=== PATIENT | male | born 1990 | race Caucasian/White ===

== ENCOUNTER 2022-02-22 10:11 | Outpatient (REF) | payer OTHER, SELFPAY ==
[2022-02-22 10:39] LABS: MANUAL DIFF FLAG NO
[2022-02-22 11:28] LABS: Basophils Percent Auto 0.3 % (0-2); Eosinophils Absolute Auto 0.1 X10*3/uL (0.0-0.4); Eosinophils Percent Auto 0.7 % (0-4); Hematocrit 43.1 % (42.0-52.0); Hemoglobin 15.2 g/dl (14.0-18.0); Imm Gran Abs Auto 0.03 X10*3/uL (0.00-0.03); Imm Gran Pct Auto 0.3 % (0.0-0.4); Lymphocytes Absolute Auto 2.3 X10*3/uL (1.2-4.9); Lymphocytes Percent Auto 25.9 % (20-40); Mean Corpuscular HGB Conc 35.3 g/dl (31.0-36.0); Mean Corpuscular Hemoglobin 32.5 pg (27.0-33.0); Mean Corpuscular Volume 92.1 fL (80.0-98.0); Mean Platelet Volume 9.6 fL (9.4-12.4); Monocytes Absolute Auto 0.7 X10*3/uL (0.1-1.2); Monocytes Percent Auto 8.2 % (2-11); Neutrophils Absolute Auto 5.6 x10*3/uL (2.0-8.3); Neutrophils Percent Auto 64.6 % (45-73); Platelet Count 287 X10*3/uL (160-400); Red Blood Count 4.68 X10*6/uL (4.60-5.80); Red Cell Distribution Width 12.2 % (11.0-16.0); White Blood Count 8.7 X10*3/uL (4.8-10.8)
[2022-02-22 12:19] LABS: Alanine Aminotransferase 39 U/L (0-40); Albumin Level 4.6 g/dL (3.5-5.0); Alkaline Phosphatase 70 U/L (39-117); Anion Gap 12 (12-20); Aspartate Amino Transferase 25 U/L (5-37); Bilirubin Total 0.3 mg/dL (0.0-1.0); Blood Urea Nitrogen 13 mg/dL (9-16); Calcium 9.2 mg/dL (8.4-10.2); Carbon Dioxide 27 mmol/L (22-29); Chloride 105 mmol/L (96-108); Cholesterol 195 mg/dL; Estimated Glomerular Filt Rate > 60; Glucose Fasting 87 mg/dL (60-99); HDL Cholesterol 40 mg/dL; LDL Cholesterol Calculated 95 mg/dl; Potassium 4.7 mmol/L (3.3-5.1); Sodium 139 mmol/L (135-145); Total Protein 7.2 g/dL (6.5-8.0); Triglycerides 301 mg/dL
[2022-02-22 12:29] LABS: Thyroid Stimulating Hormone 0.59 uIU/mL (0.32-4.0)
== END 2022-02-22 10:12 | disposition home or self-care (01) ==
LOC: HO.LAB 10:11
PROVIDERS: Absent Provider Podiatrist; PCP Internal Medicine; Visit Provider Internal Medicine
DX: Z00.00 Encounter for general adult medical examination without abnormal findings (principal); Z13.0 Encounter for screening for diseases of the blood and blood-forming organs and certain disorders involving the immune mechanism
CPT/HCPCS: 36415; 80053; 80061; 84443; 85025

== ENCOUNTER 2022-04-09 07:16 | Outpatient (REF) | payer OTHER, SELFPAY | END 2022-04-09 07:17 | disposition home or self-care (01) | LOC: HO.HOSX 07:16 | PROVIDERS: Visit Provider Physician Assistant | DX: Z13.89 Encounter for screening for other disorder (principal) ==

== ENCOUNTER 2022-07-06 16:44 | Outpatient (REF) | payer OTHER, SELFPAY ==
[2022-07-07 13:23] LABS: Influenza A PCR NEGATIVE (Negative); Influenza B PCR NEGATIVE (Negative); Resp Syncy Virus RNA Qual PCR NEGATIVE (Negative); SARS COV2 PCR INHOUSE NEGATIVE (Negative)
== END 2022-07-06 16:45 | disposition home or self-care (01) ==
LOC: HO.LAB 16:44
PROVIDERS: Visit Provider Nurse Practitioner Family
DX: Z20.822 Contact with and (suspected) exposure to COVID-19 (principal)
CPT/HCPCS: 0241U

== ENCOUNTER 2022-07-28 08:07 | Outpatient (REF) | payer OTHER, SELFPAY ==
[2022-07-28 09:13] LABS: Alanine Aminotransferase 77 U/L (0-40); Albumin Level 4.9 g/dL (3.5-5.0); Alkaline Phosphatase 81 U/L (39-117); Aspartate Amino Transferase 53 U/L (5-37); Bilirubin Direct 0.2 mg/dL (0.0-0.5); Bilirubin Total 0.5 mg/dL (0.0-1.0); Total Protein 7.3 g/dL (6.5-8.0)
== END 2022-07-28 08:08 | disposition home or self-care (01) ==
LOC: HO.LAB 08:07
PROVIDERS: PCP Internal Medicine; Visit Provider Podiatrist
DX: B35.1 Tinea unguium (principal)
CPT/HCPCS: 36415; 80076

== ENCOUNTER 2022-10-12 08:24 | Outpatient (REF) | payer OTHER, SELFPAY ==
[2022-10-12 09:43] LABS: Alanine Aminotransferase 26 U/L (0-40); Albumin Level 4.6 g/dL (3.5-5.0); Alkaline Phosphatase 59 U/L (39-117); Aspartate Amino Transferase 22 U/L (5-37); Bilirubin Direct < 0.2 mg/dL (0.0-0.5); Bilirubin Total 0.5 mg/dL (0.0-1.0); Total Protein 6.9 g/dL (6.5-8.0)
== END 2022-10-12 08:25 | disposition home or self-care (01) ==
LOC: HO.LAB 08:24
PROVIDERS: PCP Internal Medicine; Visit Provider Podiatrist
DX: B35.1 Tinea unguium (principal)
CPT/HCPCS: 36415; 80076

== ENCOUNTER 2022-11-07 00:25 | Emergency (ER) | payer OTHER, SELFPAY ==
--- NOTE | ~2022-11-07 | XR_ITS ---
EXAMINATION: XR ELBOW, RIGHT CLINICAL INFORMATION: Pain status post fall COMPARISON: None available. TECHNIQUE: AP, lateral, and oblique views of the right elbow. FINDINGS: The bones and soft tissues are normal. No fracture or joint effusion. Alignment is anatomic. Joint spaces are maintained. XR/XR elbow RT min 3V IMPRESSION: Normal right elbow.
[2022-11-07 00:32] VITALS: BP 114/62; PULSE 60; O2SAT 100
[2022-11-07 00:40] VITALS: BP 118/73; PULSE 68; RESP 16; TEMP 36.6; O2SAT 98; BMI 26.6
--- NOTE | 2022-11-07 00:43 | ECG_ITS ---
Test Reason : SYNCOPE Blood Pressure : / mmHG Vent. Rate : 070 BPM Atrial Rate : 070 BPM P-R Int : 168 ms QRS Dur : 094 ms QT Int : 386 ms P-R-T Axes : 043 -15 033 degrees QTc Int : 416 ms Normal sinus rhythm Normal ECG No previous ECGs available Referred By: Rissa Harmon Electronically Signed By:AISLINN COOPER
--- NOTE | 2022-11-07 01:34 | ED_ITS ---
HPI - Syncope General Chief Complaint: Syncope Stated Complaint: Syncopal Episode Time Seen by Provider: 11/07/22 00:43 Source: patient Mode of arrival: EMS History of Present Illness HPI narrative: 32-year-old male with a history of vasovagal syncope as well as anxiety presents via EMS for being involved in an intense argument with his , she left the room and patient states that he for felt lightheaded and attempted to sit down prior to passing out in the states that she came back in and saw him strike his shoulder against the wall and then fall onto the floor striking his head on the cat bowls. Related Data Previous Rx's Medication Instructions Recorded terbinafine HCl 250 mg tablet 250 mg PO DAILY #30 tabs 10/15/22 Allergies Allergy/AdvReac Type Severity Reaction Status Date / Time No Known Allergies Allergy Verified 08/05/22 10:16 [No Known Allergies*] Review of Systems Review of Systems: Pertinent positives and negatives as stated in HPI PMFSH Past Medical History Source: nursing notes reviewed Surgical History No pertinent past surgical history Family History Family History Father No problems noted. Mother No problems noted. Social History Social History Housing: Apartment Alcohol intake: current Alcohol intake frequency: a few times a month Patient Tobacco Use Status: Current someday Tobacco user Tobacco use type: Cigarette e-Cigarette/Vaping Use: Never Used Second Hand Smoke Exposure: No Advance Directives: No Advance Directives Information Provided: No service: No Current occupational status: employed Cognitive needs: No Hearing needs: No Vision needs: No Physical Exam Vital Signs: Vital Signs: Last Vital Signs Temp 97.8 F 11/07/22 00:40 Pulse 68 11/07/22 00:40 Resp 16 11/07/22 00:40 BP 145/78 H 11/07/22 02:35 Pulse Ox 98 11/07/22 00:40 O2 Del Method Room Air 11/07/22 00:40 BMI result Body Mass Index 26.6 VITAL SIGNS: Reviewed. GENERAL: Well developed, well nourished, in no acute distress. HEAD: Normocephalic/atraumatic EYES: PERRLA, EOMI EARS: Ext canals without abnormality NOSE: Nares patent bilateral OROPHARYNX: no oral lesions noted, posterior pharynx clear NECK: Supple, no adenopathy LUNGS: Normal breath sounds. No adventitious sounds or accessory muscle use. SpO2<98> CARDIOVASCULAR: Regular rate and rhythm without noted murmurs ABDOMEN: Soft, non-tender, non-distended with bowel sounds. MUSCULOSKELETAL: No tenderness, deformities, or effusions noted on gross inspection. EXTREMITIES: No cyanosis, clubbing or edema. SKIN: Inspection of the skin reveals no rashes, NEUROLOGIC: Alert and oriented x 3. Strength and sensation to light touch were grossly intact x 4. Medications Administered Discontinued Medications Generic Name Dose Route Start Last Admin Trade Name Freq PRN Reason Stop Dose Admin Acetaminophen 975 mg 11/07/22 02:22 11/07/22 02:43 Acetaminophen 325 Mg Tablet PO 11/07/22 02: 975 mg ONCE ONE Administration Ibuprofen 400 mg 11/07/22 02:22 11/07/22 02:43 Ibuprofen 400 Mg Tablet PO 11/07/22 02:23 400 mg ONCE ONE Administration Medical Decision Making Medical Decision Making MDM Narrative: 32-year-old male with history and clinical presentation most consistent with vasovagal syncope related to high emotions during an argument. Will rule out infection, anemia, electrolyte abnormalities or arrhythmias. Reviewed all investigations my interpretation is that this is a vasovagal syncopal episode secondary to high stress emotions. Differential Diagnosis Please see the discussion above Lab Data Please see the discussion above 11/07/22 01:38 11/07/22 01:38 Labs: Lab Results 11/07/22 11/07/22 Range/Units 01:38 01:38 WBC 8.0 (4.8-10.8) X10*3/uL RBC 4.73 (4.60-5.80) X10*6/uL Hgb 15.2 (14.0-18.0) g/dl Hct 42.4 (42.0-52.0) % MCV 89.6 (80.0-98.0) fL MCH 32.1 (27.0-33.0) pg MCHC 35.8 (31.0-36.0) g/dl RDW 12.2 (11.0-16.0) % Plt Count 268 (160-400) X10*3/uL MPV 9.0 L (9.4-12.4) fL Immature Gran % (Auto) 0.4 (0.0-0.4) % Neut % (Auto) 67.0 (45-73) % Lymph % (Auto) 21.9 (20-40) % [place] % (Auto) 9.6 (2-11) % Eos % (Auto) 0.6 (0-4) % Baso % (Auto) 0.5 (0-2) % Lymph # (Auto) 1.7 (1.2-4.9) X10*3/uL [place] # (Auto) 0.8 (0.1-1.2) X10*3/uL Eos # (Auto) 0.1 (0.0-0.4) X10*3/uL Baso # (Auto) 0.0 (0.0-0.2) X10*3/uL Abs Immat Gran (auto) 0.03 (0.00-0.03) X10*3/uL Absolute Neuts (auto) 5.3 (2.0-8.3) x10*3/uL Absolute Nucleated RBC 0.000 (0.0-0.012) X10*3/uL Nucleated RBC % (auto) 0.0 (0.0-0.2) /100WBC Sodium 139 (135-145) mmol/L Potassium 4.2 (3.3-5.1) mmol/L Chloride 104 (96-108) mmol/L Carbon Dioxide 23 (22-29) mmol/L Anion Gap 16 (12-20) BUN 20 H (9-16) mg/dL Creatinine 0.93 (0.5-1.4) mg/dL Estim Creat Clear Calc 108.5 Estimated GFR > 60 Random Glucose 88 (60-115) mg/dL Calcium 9.8 D (8.4-10.2) mg/dL Total Bilirubin 0.6 (0.0-1.0) mg/dL AST 25 (5-37) U/L ALT 28 (0-40) U/L Alkaline Phosphatase 64 (39-117) U/L Total Protein 7.3 (6.5-8.0) g/dL Albumin 4.8 (3.5-5.0) g/dL Ethyl Alcohol < 10 mg/dL Independent Interpretation I performed an independent interpretation of an: EKG Interpretation: Normal sinus rhythm, HR-70, no STEMI, [place]/QRS/QTC is within normal limits. Radiology Impression Radiologist Impression: My interpretation is in agreement with radiology's impression of the imaging study Discharge Plan Discharge Clinical Impression: Syncope, vasovagal, Elbow pain Patient Disposition: Home, Self-Care Instructions: Syncope (ED), Arm Pain (ED) Additional Instructions: 1. Recommend [id number] Tylenol/ibuprofen as needed for elbow pain. 2. Follow-up with primary care provider Tuesday. Return to the ER for any worsening symptoms. Prescriptions: No Action terbinafine HCl 250 mg tablet 250 mg PO DAILY Qty: 30 0RF Referrals: Esteban Henning MD [Primary Care Provider] -
[2022-11-07 01:42] LABS: Basophils Percent Auto 0.5 % (0-2); Eosinophils Absolute Auto 0.1 X10*3/uL (0.0-0.4); Eosinophils Percent Auto 0.6 % (0-4); Hematocrit 42.4 % (42.0-52.0); Hemoglobin 15.2 g/dl (14.0-18.0); Imm Gran Abs Auto 0.03 X10*3/uL (0.00-0.03); Imm Gran Pct Auto 0.4 % (0.0-0.4); Lymphocytes Absolute Auto 1.7 X10*3/uL (1.2-4.9); Lymphocytes Percent Auto 21.9 % (20-40); MANUAL DIFF FLAG NO; Mean Corpuscular HGB Conc 35.8 g/dl (31.0-36.0); Mean Corpuscular Hemoglobin 32.1 pg (27.0-33.0); Mean Corpuscular Volume 89.6 fL (80.0-98.0); Monocytes Absolute Auto 0.8 X10*3/uL (0.1-1.2); Monocytes Percent Auto 9.6 % (2-11); Neutrophils Absolute Auto 5.3 x10*3/uL (2.0-8.3); Platelet Count 268 X10*3/uL (160-400); Red Blood Count 4.73 X10*6/uL (4.60-5.80); Red Cell Distribution Width 12.2 % (11.0-16.0)
[2022-11-07 02:05] LABS: Alanine Aminotransferase 28 U/L (0-40); Albumin Level 4.8 g/dL (3.5-5.0); Alkaline Phosphatase 64 U/L (39-117); Anion Gap 16 (12-20); Aspartate Amino Transferase 25 U/L (5-37); Bilirubin Total 0.6 mg/dL (0.0-1.0); Blood Urea Nitrogen 20 mg/dL (9-16); Calcium 9.8 mg/dL (8.4-10.2); Carbon Dioxide 23 mmol/L (22-29); Chloride 104 mmol/L (96-108); Creatinine Clr Calc Pharmacy 108.5; Estimated Glomerular Filt Rate > 60; Ethanol < 10 mg/dL; Glucose Random 88 mg/dL (60-115); Potassium 4.2 mmol/L (3.3-5.1); Sodium 139 mmol/L (135-145); Total Protein 7.3 g/dL (6.5-8.0)
[2022-11-07 02:33] VITALS: BP 119/68
[2022-11-07 02:35] VITALS: BP 133/72; BP 145/78
[2022-11-07] MEDS: Ibuprofen 400 MG TABLET PO (02:43)
[2022-11-07] MEDS: Acetaminophen 325 MG TABLET 975 MG PO (02:43)
== END 2022-11-07 03:51 | disposition home or self-care (01) ==
PROVIDERS: Emergency Provider Student in an Organized Health Care Education/Training Program; PCP Internal Medicine
DX: R55 Syncope and collapse (principal); M25.522 Pain in left elbow; M25.521 Pain in right elbow; F17.210 Nicotine dependence, cigarettes, uncomplicated; Z71.6 Tobacco abuse counseling; Z79.899 Other long term (current) drug therapy
CPT/HCPCS: 36415; 73080; 80053; 82077; 85025; 93005; 99285

== ENCOUNTER 2023-11-28 09:06 | Outpatient (AMB) | payer OTHER, SELFPAY ==
--- NOTE | 2023-11-28 09:16 | MHC.PC.OV ---
Vital Signs 11/28/23 09:17 Height 5 ft 7 in Weight 183 lb BMI 28.7 BP 114/78 Blood Pressure Location Lt brachial Position Sitting Pulse 60 Pulse Source Pulse Oximeter Pulse Oximetry (%) 98 Oxygen Delivery Method Room Air Intake Visit Reasons: pe Licensed [employer] Room Operator Required: No Admitted Attorneys: Not Required per policy Accompanied by: Self / Same As Patient Allergies No Known Allergies [No Known Allergies*] Allergy (Verified 11/28/23 09:17) Medication List - Last Reconciled 11/28/23 by Esteban Henning MD lorazepam 1 mg PO BID PRN Tobacco use date assessed: 11/28/23 Dental Screening Dental Screen Date: 11/28/23 Did you have a dental visit in the last 12 months?: Yes Did you have a dental problem in the last 6 months where you did not have access to dental care?: No Was dental information given to patient?: Patient has dentist HPI pe HPI Details healthy; no reg meds PFSH Surgical History No pertinent past surgical history Family History Father No problems noted. Mother No problems noted. Social History Housing: Apartment Alcohol intake: current Alcohol intake frequency: a few times a month Patient Tobacco Use Status: Current someday Tobacco user Tobacco use type: Cigarette e-Cigarette/Vaping Use: Never Used Second Hand Smoke Exposure: No service: No Current occupational status: employed Cognitive needs: No Hearing needs: No Vision needs: No Questionnaire PHQ-9 Over the last 2 weeks, how often have you been bothered by any of the following problems? 1. Little interest or pleasure in doing things: not at all 2. Feeling down, depressed, or hopeless: not at all 3. Trouble falling or staying asleep, or sleeping too much: not at all 4. Feeling tired or having little energy: several days 5. Poor appetite or overeating: not at all 6. Feeling bad about yourself - or that you are a failure or have let yourself or your family down: not at all 7. Trouble concentrating on things, such as reading the newspaper or watching television: not at all 8. Moving or speaking so slowly that other people could have noticed. Or the opposite - being so fidgety or restless that you have been moving around a lot more than usual: not at all 9. Thoughts that you would be better off or of hurting yourself in some way: not at all Total score: 1 Depression Screening Interpretation: Negative Depression Screening Done: Yes 26367 - PHQ-9 Billing: Yes Source: Developed by Drs. Kojo Zhao, Marycruz Ling, Scotty Noland and colleagues, with an educational elvis from [employer]. Thrive Questionnaire Date Thrive assessed: 11/28/23 I am a: Patient What is your living situation today?: I have a steady place to live Within the past 12 months, did the food you bought not last and you didn't have the money to get more?: Never true Within the past 12 months, did you worry whether your food would run out before you got money to buy more?: Never true Do you have trouble paying for medicines?: No Do you have trouble getting transportation to medical appointments?: No Do you have trouble paying your heating and electricity bill?: No Do you have trouble taking care of your child, family member or friend?: No Do you have trouble with day-to-day activities such as bathing, preparing meals, shopping, managing finances, etc.?: No Are you currently unemployed and looking for a job?: No Are you interested in more education?: No Please select the resources that you would like help with: None THRIVE Score: 0 AUDIT C Alcohol Use Questionnaire (AUDIT-C) 1. How often do you have a drink containing alcohol?: 2-4 times a month 2. How many drinks containing alcohol do you have on a typical day when you are drinking?: 1 or 2 3. How often do you have six or more drinks on one occasion?: Never Total Score: 2 Score Reviewed/Action Taken: Yes CECILIO-7 AMB Questionnaire CECILIO-7 Date CECILIO - 7 assessed: 11/28/23 Feeling nervous, anxious, or on edge: 0 = Not at all Not being able to stop or control worryin = Not at all Worrying too much about different things: 0 = Not at all Trouble relaxin = Not at all Being so restless that it is hard to sit still: 0 = Not at all Becoming easily annoyed or irritable: 0 = Not at all Feeling afraid as if something awful might happen: 0 = Not at all Total CECILIO-7 score (0-4 normal; 5-9 mild; 10-14 moderate; 15-21 severe): 0 Source: Developed by Drs. Kojo Zhao, Marycruz Ling, Scotty Noland and colleagues, with an educational elvis from [employer]. Review of Systems Const Denies chills, Denies fatigue, Denies headache(s) and Denies weight loss Eyes Denies change in vision, Denies diplopia and Denies eye pain ENT Reports Normal hearing present, Denies vertigo, Denies dizziness, Denies headache(s) and Denies nasal discharge Card Denies chest pain, Denies rapid heart rate and Denies dyspnea on exertion Resp Denies chest congestion, Denies cough, Denies pain with cough and Denies dyspnea on exertion GI Denies abdominal pain, Denies hematochezia and Denies change in bowel habits Musc Denies myalgias, Denies arthralgias and Denies joint swelling Skin/Breast Denies lesions and Denies unusual bruising Neuro Reports Normal hearing present, Denies vertigo, Denies dizziness, Denies headache(s) and Denies focal weakness Endo Denies fatigue Physical exam (Primary Care) Vital Signs: Last Vital Signs Pulse 60 11/28/23 09:17 BP 114/78 11/28/23 09:17 Pulse Ox 98 11/28/23 09:17 Oxygen Delivery Method Room Air 11/28/23 09:17 BMI result Body Mass Index 28.7 Tobacco/Smoking Status: Tobacco use Status Tobacco use date assessed 11/28/23 11/28/23 09:18 Patient Tobacco Use Status Current someday Tobacco 11/28/23 09:18 Tobacco use type Cigarette 11/28/23 09:18 e-Cigarette/Vaping Use Never Used 11/28/23 09:18 PHQ-9: PHQ-9 Score PHQ-9: Total score 1 11/28/23 09:18 Depression Screening Interpretation: Negative Thrive Assessment: Date of Thrive Assessment Date Thrive assessed 11/28/23 11/28/23 09:18 Const General: cooperative, healthy appearing, comfortable and no acute distress HENMS Head: Yes normocephalic and Yes atraumatic Eyes General: appearance normal, both eyes and all related structures Neck Neck: Yes full ROM and Yes no lymphadenopathy Resp Effort & Inspection: normal respiratory effort Auscultation: clear to auscultation bilaterally Percussion: percussion normal Cardio Jugular venous distension: no JVD Palpation: normal PMI Rate: regular rate Rhythm: regular rhythm Heart sounds: S1 normal heart sound present and S2 normal heart sound present GI Inspection: Yes normal to inspection Palpation (GI): No hepatosplenomegaly present Auscultation: normal bowel sounds Skin Lesions: no lesions Rashes: no rashes Neuro Cranial nerves: Yes Normal hearing present Extrem General: Yes no clubbing, cyanosis or edema Assessment and Plan Assessment & Plan (1) Physical exam: Code(s): Z00.00 - Encounter for general adult medical examination without abnormal findings Plan: stable; do labs Orders: Orders Thyroid Stimulating Hormone Today Z13.29 - Encounter for screening for other suspected endocrine disorder Coding Level of Care Code Est Pt Prev Care 18-39y(40726) Diagnoses Physical exam Z00.00
[2023-11-28 09:17] VITALS: BP 114/78; PULSE 60; O2SAT 98; BMI 28.7
== END 2023-11-28 09:38 | disposition home or self-care (01) ==
PROVIDERS: Visit Provider Internal Medicine
DX: Z00.00 Encounter for general adult medical examination without abnormal findings (principal)
CPT/HCPCS: 99395

== ENCOUNTER 2024-12-28 09:06 | Outpatient (AMB) | payer OTHER, SELFPAY ==
[2024-12-28 09:11] VITALS: BP 120/82; PULSE 56; RESP 20; TEMP 36.4; O2SAT 97; BMI 27.9
--- NOTE | 2024-12-28 09:11 | A.OFFPC_ITS ---
Vital Signs 12/28/24 09:11 Height 5 ft 7 in Weight 178 lb 3.2 oz BMI 27.9 BP 120/82 Blood Pressure Location Lt brachial Position Sitting Respiration 20 Pulse 56 Pulse Source Pulse Oximeter Temp 97.5 F Temp Source Oral Pulse Oximetry (%) 97 Oxygen Delivery Method Room Air Intake Visit Reasons: MAMADOU Dr. Henning [place] Hand Required: No Accompanied by: Self / Same As Patient Allergies No Known Allergies [No Known Allergies*] Allergy (Verified 12/28/24 09:24) Medication List - Last Reconciled 12/28/24 by BENNY Palm No Known Home Meds Tobacco use date assessed: 12/28/24 Dental Screening Dental Screen Date: 12/28/24 Did you have a dental visit in the last 12 months?: Yes Did you have a dental problem in the last 6 months where you did not have access to dental care?: No Was dental information given to patient?: Patient has dentist HPI MAMADOU Dr. Henning HPI Details The patient is a 34-year-old male presenting transition of care from Dr. Henning who retired. Here to discuss management of chronic hemorrhoids, along with a complaint of excessive sweating. He has experienced chronic recurrent hemorrhoids and has adopted dietary changes focused on fiber intake through yogurt. He employs wipes for hygiene and uses hemorrhoid cream when symptoms flare, although he finds inconsistencies in product formulations. The issue of hemorrhoids fluctuates with the patient's bowel habits, noting a connection to constipation episodes. Additionally, the patient reports excessive sweating mainly localized to his armpits, noticeably worse at night, leading to discomfort even with minimal coverage. He queries whether this is related to his diet or possibly linked to anxiety, despite having well-managed anxiety without recent medication. The patient describes issues with constipation exacerbated by low water intake and high coffee consumption. Encouraged to patient to increase fiber in his di et and adequate hydration. Patient denies chest pain, SOB, heart palpitation and dizziness. No abdominal pain/no change in bowel habits recurrent- intermittent constipation. No urinary symptoms. [facility] Medical History (Updated 12/31/24 @ 23:19 by BENNY Palm) Constipation Hemorrhoids Surgical History No pertinent past surgical history Family History Father No problems noted. Mother No problems noted. 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 1. Little interest or pleasure in doing things: not at all 2. Feeling down, depressed, or hopeless: not at all 3. Trouble falling or staying asleep, or sleeping too much: several days 4. Feeling tired or having little energy: several days 5. Poor appetite or overeating: not at all 6. Feeling bad about yourself - or that you are a failure or have let yourself or your family down: not at all 7. Trouble concentrating on things, such as reading the newspaper or watching television: not at all 8. Moving or speaking so slowly that other people could have noticed. Or the opposite - being so fidgety or restless that you have been moving around a lot more than usual: not at all 9. Thoughts that you would be better off or of hurting yourself in some way: not at all Total score: 2 Depression Screening Interpretation: Negative Depression Screening Done: Yes 40312 - PHQ-9 Billing: Yes Source: Developed by Drs. Kojo Zhao, Marycruz Ling, Scotty Noland and colleagues, with an educational elvis from [employer]. Thrive Questionnaire Date Thrive assessed: 12/28/24 I am a: Patient What is your living situation today?: I have a steady place to live Within the past 12 months, did the food you bought not last and you didn't have the money to get more?: Never true Within the past 12 months, did you worry whether your food would run out before you got money to buy more?: Never true Do you have trouble paying for medicines?: No Do you have trouble getting transportation to medical appointments?: No Do you have trouble paying your heating and electricity bill?: No Do you have trouble taking care of your child, family member or friend?: No Do you have trouble with day-to-day activities such as bathing, preparing meals, shopping, managing finances, etc.?: No Are you currently unemployed and looking for a job?: No Are you interested in more education?: No Please select the resources that you would like help with: None Currently or been in a relationship where the following occur: No concerns reported THRIVE Score: 0 AUDIT C Alcohol Use Questionnaire (AUDIT-C) 1. How often do you have a drink containing alcohol?: 2-3 times a week 2. How many drinks containing alcohol do you have on a typical day when you are drinking?: 1 or 2 3. How often do you have six or more drinks on one occasion?: Never Total Score: 3 Score Reviewed/Action Taken: No CECILIO-7 AMB Questionnaire CECILIO-7 Date CECILIO - 7 assessed: 12/28/24 Feeling nervous, anxious, or on edge: 1 = Several days Not being able to stop or control worryin = Not at all Worrying too much about different things: 0 = Not at all Trouble relaxin = Not at all Being so restless that it is hard to sit still: 0 = Not at all Becoming easily annoyed or irritable: 0 = Not at all Feeling afraid as if something awful might happen: 0 = Not at all Total CECILIO-7 score (0-4 normal; 5-9 mild; 10-14 moderate; 15-21 severe): 1 Source: Developed by Drs. Kojo Zhao, Marycruz Ling, Scotty Noland and colleagues, with an educational elvis from [employer]. CECIILO-7 Assessment Billing CECILIO-7 Assessment Tool: CECILIO-7 Assessment 50532 Review of Systems Const Reports excessive sweating (Primarily axilla) and Denies headache(s) Eyes Denies loss of vision ENT Denies vertigo, Denies dizziness, Denies headache(s) and Denies sore throat Card Denies chest pain, Denies leg edema and Denies lightheadedness Resp Denies cough, Denies hemoptysis and Denies wheezing GI Denies abdominal pain, Denies melena, Denies hematochezia, Reports tenesmus, Reports constipation, Denies diarrhea, Denies vomiting and Reports other (Recurrent hemorrhoids) Denies dysuria, Denies urinary frequency and Denies urinary urgency Musc Denies arthralgias, Denies joint swelling, Denies numbness and Denies tingling Neuro Denies Abnormal speech present, Denies behavioral changes, Denies vertigo, Denies dizziness, Denies headache(s), Denies loss of vision, Denies memory loss, Denies numbness and Denies tingling Psych Reports anxiety, Denies behavioral changes, Denies depression, Denies memory loss and Denies panic attacks Endo Reports excessive sweating (Primarily axilla) Vel/Lymph Denies easy bleeding and Denies easy bruising Aller/Immun Denies wheezing Physical exam (Primary Care) Vital Signs: Last Vital Signs Temp 97.5 F 12/28/24 09:11 Pulse 56 12/28/24 09:11 Resp 20 12/28/24 09:11 BP 120/82 12/28/24 09:11 Pulse Ox 97 12/28/24 09:11 Oxygen Delivery Method Room Air 12/28/24 09:11 BMI result Body Mass Index 27.9 Tobacco/Smoking Status: Tobacco use Status Tobacco use date assessed 12/28/24 12/28/24 09:21 Patient Tobacco Use Status Former Tobacco user 12/28/24 09:21 Tobacco use type Cigarette 12/28/24 09:21 e-Cigarette/Vaping Use Never Used 12/28/24 09:21 PHQ-9: PHQ-9 Score PHQ-9: Total score 2 12/28/24 09:33 Depression Screening Interpretation: Negative Thrive Assessment: Date of Thrive Assessment Date Thrive assessed 12/28/24 12/28/24 09:21 Currently or been in a relationship where the following occur: No concerns reported Const General: healthy appearing, no acute distress, alert and awake Nutritional Appearance: well nourished Orientation/consciousness: oriented to person, oriented to place and oriented to time HENMT Ears: TM's normal bilaterally General nose exam: Normal nasal mucous membranes and turbinates present Eyes Conjunctivae: conjunctivae normal Sclerae: sclerae normal Pupils: Equal, round and reactive pupils present Neck Neck: Yes no lymphadenopathy and Yes no JVD Thyroid: Thyroid normal Carotids: no bruits Resp Effort & Inspection: normal respiratory effort and not tachypneic Auscultation: no crackles, no rales, no rhonchi and no wheezes Cardio Rate: regular rate Rhythm: regular rhythm Heart sounds: no murmurs and normal S1 and S2 GI Palpation (GI): Soft to palpation, nontender, no hepatomegaly and no splenomegaly Auscultation: normal bowel sounds Rectal Exam - Male: Yes deferred General: Yes no CVA tenderness Back/Spine/Pelvis Back: no CVA tenderness Skin General skin exam: no rashes or lesions noted and dry skin Neuro General: oriented to person, oriented to place and oriented to time Cranial nerves: Yes Equal, round and reactive pupils present Speech: No Abnormal speech present Gait exam (Neuro): Normal gait present Motor exam (neuro): no tremor noted Extrem Right upper extremity: full ROM Left upper extremity: full ROM Right lower extremity: full ROM; no edema Left lower extremity: full ROM; no edema Psych Mental Status: mental status grossly normal Speech and movement: Normal speech and movement present Affect: normal affect Attitude: cooperative Thought process: Normal thought process present Coding Level of Care Code Est Pt Level 3 (77436) Diagnoses Hemorrhoids, unspecified hemorrhoid type K64.9 Hemorrhoid type: unspecified Constipation, unspecified constipation type K59.00 Constipation type: unspecified constipation type Excessive sweating R61 Anxiety F41.9 Additional Codes CECILIO-7 Assessment Billing - CECILIO-7 Assessment Tool: CECILIO-7 Assessment 19886 ([id number]) PHQ-9 - 09132 - PHQ-9 Billing: Yes ([id number]) Time Spent (min) 34 Assessment & Plan Assessment & Plan (1) Hemorrhoids: Code(s): K64.9 - Unspecified hemorrhoids Category: Medical Qualifiers: Hemorrhoid type: unspecified Qualified Code(s): K64.9 - Unspecified hemorrhoids Plan: Reinforced treating the cause, explained to the patient that after having hemorrhoids the area becomes weekend so even after the hemorrhoid resolved, straining/constipation can cause it to reoccur. In addition, reoccurrence could even happen after hemorrhoidectomy. As a result, the best treatment is prevention of the cause, for instance, prolong sitting on toilet or straining due to constipation can cause hemorrhoids and eliminating these problems can prevent the reoccurrence. Increase fluids intake and dietary fiber has a 1st step. If unable eliminate constipation contact the office for different suggestions like supplemental fibers, MiraLax/fiber gummies., etc. stool softeners can also be purchased OTC. (2) Constipation: Code(s): K59.00 - Constipation, unspecified Category: Medical Qualifiers: Constipation type: unspecified constipation type Qualified Code(s): K59.00 - Constipation, unspecified Plan: Increase fluids intake and dietary fiber has a 1st step. If unable eliminate constipation contact the office for different suggestions like supplemental fibers, MiraLax/fiber gummies., etc. stool softeners can also be purchased OTC. (3) Excessive sweating: Code(s): R61 - Generalized hyperhidrosis Category: Medical Plan: Aluminum chloride 20% topical apply at bedtime ordered (4) Anxiety: Code(s): F41.9 - Anxiety disorder, unspecified Category: Medical Plan: Encouraged CBT Reports that he has been coping without any medical management and would like to continue doing the same for now Orders: Orders Comprehensive [place]. Panel Fast 12/28/24 F3. - Major depressive disorder, single episode, unspecified, Z00.00 - Encounter for general adult medical examination without abnormal findings TSH reflex Free T4 12/28/24. - Major depressive disorder, single episode, unspecified, Z00.00 - Encounter for general adult medical examination without abnormal findings UA CC w/rflx Micro + Cult 12/28/24. - Major depressive disorder, single episode, unspecified, Z00.00 - Encounter for general adult medical examination without abnormal findings Glucose Fasting 12/28/24.9 - Major depressive disorder, single episode, unspecified, Z00.00 - Encounter for general adult medical examination without abnormal findings Complete Blood Count Auto Diff 12/28/24.9 - Major depressive disorder, single episode, unspecified, Z00.00 - Encounter for general adult medical examination without abnormal findings Lipid Panel 12/28/24.9 - Major depressive disorder, single episode, unspecified, Z00.00 - Encounter for general adult medical examination without abnormal findings Vitamin D 25-OH Total 12/28/24. - Major depressive disorder, single episode, unspecified, Z00.00 - Encounter for general adult medical examination without abnormal findings Medications: New aluminum chloride 20% appy at bedtime topically; once a day 1,440 mL 0RF
--- OUTSIDE RECORDS SUMMARY | 2024-12-28 09:24 | XMS_ITS | Encounter Summary ---
Author Organization [facility] Address [address] [place] [address] Phone Care Team Providers Care Cigar Packer And Sorter Name Role Phone Nate Salazar MD Primary Care Provider Unavailabl e Encounter Details Date Type Department Care Team (Late st Contact Info) Description 03/16/2017 Conversion Encounter [facility] - [address], [address] [place] [address] Nate Salazar MD Social History Tobacco Use Types Packs/Day Years Used Date Smoking Tobacco: Never Assessed Sex and Gender Information Value Date Recorded Sex Assigned at Not on file Legal Sex Male 5:29 PM EST Gender Identity Not on file Sexual Orientation Not on file documented as of this encounter Plan of Treatment Not on file documented as of this encounter Visit Diagnoses Not on filedocumented in this encounter Care Teams Cigar Packer And Sorter Relationship Specialty Start Date End Date Nate Salazar MD PCP - General 09/28/16 02/17/21 documented as of this encounter
== END 2024-12-28 09:58 | disposition home or self-care (01) ==
LOC: HO.HMCH 09:07
DX: K64.9 Unspecified hemorrhoids (principal); K59.00 Constipation, unspecified; R61 Generalized hyperhidrosis; F41.9 Anxiety disorder, unspecified

== ENCOUNTER → 2024-12-28 09:06 | Outpatient (BNVA) | payer OTHER, SELFPAY | DX: K64.9 Unspecified hemorrhoids (principal); K59.00 Constipation, unspecified; R61 Generalized hyperhidrosis; F41.9 Anxiety disorder, unspecified; Z13.30 Encounter for screening examination for mental health and behavioral disorders, unspecified | CPT/HCPCS: 96127 ==

== ENCOUNTER 2025-06-20 09:12 | Outpatient (REF) | payer OTHER, SELFPAY ==
[2025-06-20 09:31] LABS: MANUAL DIFF FLAG NO
[2025-06-20 10:03] LABS: Hematocrit 44.1 % (42.0-52.0); Hemoglobin 15.5 g/dl (14.0-18.0); Imm Gran Abs Auto 0.01 X10*3/uL (0.00-0.03); Imm Gran Pct Auto 0.1 % (0.0-0.4); Lymphocytes Absolute Auto 2.2 X10*3/uL (1.2-4.9); Mean Corpuscular HGB Conc 35.1 g/dl (31.0-36.0); Mean Corpuscular Hemoglobin 31.8 pg (27.0-33.0); Mean Corpuscular Volume 90.4 fL (80.0-98.0); NRBC Abs Auto 0.000 X10*3/uL (0.0-0.012); NRBC Pct Auto 0.0 /100WBC (0.0-0.2); Platelet Count 278 X10*3/uL (160-400); Red Blood Count 4.88 X10*6/uL (4.60-5.80); White Blood Count 7.1 X10*3/uL (4.8-10.8)
--- OUTSIDE RECORDS SUMMARY | 2025-06-20 10:28 | XMS_ITS | Encounter Summary ---
Author Organization [facility] Address [address] [place] [address] Phone Care Team Providers Care Carousel Operator Name Role Phone Nate Salazar MD Primary Care Provider Unavailabl e Encounter Details Date Type Department Care Team (Late st Contact Info) Description 03/16/2017 Conversion Encounter [facility] - [address], [address] [place] [address] Nate Salazar MD Social History Tobacco Use [...] on filedocumented in this encounter Care Teams Carousel Operator Relationship Specialty Start Date End Date Nate Salazar MD PCP - General 09/28/16 02/17/21 documented as of this encounter
--- OUTSIDE RECORDS SUMMARY | 2025-06-20 10:28 | XMS_ITS | Clinical Summary ---
Author Organization [facility] Address [address] [place] [address] Phone Care Team Providers Care Electronic Console Display Operator Name Role Phone Unavailable Primary Care Provider Unavailabl e Immunizations Immunization Administration Dates Next Due DTaP 05/18/1996, 4,1992,09/26,1992 H1N1 07/21/2009 HPV, Quadrivalent 12/15/2011,10/13/2011 Hep B, ped/adol 02/19/1993,1992,1992 Hib (PRP-T) 09/02/1993,1992,1992 Influenza, injectable, trivalent 10/13/2011 MMR 05/13/1997,09/02/1993 Meningococcal Conj (Menactra) MCV4P 10/13/2011,1 09/29/2005 OPV 05/18/1996, 4,1992,07/21 Td (adult) (MBL), 2 Lf tetan us toxoid, PF, adsorbed 09/25/2003 Tdap 08/16/2007 Varicella 09/08/1997 Social History Tobacco Use Types Packs/Day Years Used Date Smoking Tobacco: Never Assessed Sex and Gender Information Value Date Recorded Sex Assigned at Not on file Legal Sex Male 5:29 PM EST Gender Identity Not on file Sexual Orientation Not on file Last Filed Vital Signs Vital Sign Reading Time Taken Comments Blood Pressure 130/77 01/09/2012 12:00 AM EDT Pulse 64 01/09/2012 12:00 AM EDT Temperature 37.2 C (98.9 F) 01/09/2012 12:00 AM EDT Respiratory Rate - - Oxygen Saturation - - Inhaled Oxygen Concentration - - Weight 65.9 kg (145 lb 3.2 oz) 10/13/2011 12:00 AM EST Height 168.3 cm (5' 6.25 ) 10/13/2011 12:[address] Body Mass Index 23.26 10/13/2011 12:00 AM EST Plan of Treatment Health Maintenance Due Date Last Done Comments Varicella Vaccines (2 of 2 - 2-dose childhood series) 12/01/1997 09/08/1997 HPV Vaccines (3 - Male 3-dose series) 04/14/2012 12/15/2011, 10/13/2011 DTaP,Tdap,and Td Vaccines (7 - Td or Tdap) 08/16/2017 08/16/2007, 09/25/2003, 05/18/1996, Additional history exists Influenza Vaccines (#1) 2025 10/13/2011 COVID-19 Vaccine ( - season) 2025 Hepatitis B Vaccines Completed 02/19/1993, 1992, 1992 HIB Vaccines Completed 09/02/1993, 11/07, 1992 IPV Vaccines Completed 05/18/1996, 11/06, 1992, Additional history exists MMR Vaccines Completed 05/13/1997, 09/02/1993 Meningococcal Vaccine Aged Out 10/13/2011, 006 No longer eligible based on patient's age to complete this topic Hepatitis A Vaccines Aged Out No long er eligible based on patient's age to complete this topic Men B Vaccine Aged Out No longer elig ible based on patient's age to complete this topic Pneumococcal Vaccine Aged Out No long er eligible based on patient's age to complete this topic
--- OUTSIDE RECORDS SUMMARY | 2025-06-20 10:28 | XMS_ITS | Clinical Summary ---
Author Organization [facility] Address [address] [place] [address] Care Team Providers Care Environmental Epidemiologist Name Role Phone Unavailable Primary Care Provider Unavailabl e Social History Tobacco Use Types Packs/Day Years Used Date Smoking Tobacco: Never Assessed Sex and Gender Information Value Date Recorded Sex Assigned at Not on file Legal Sex Male 8:00 PM EST Gender Identity Not on file Sexual Orientation Not on file Plan of Treatment Health Maintenance Due Date Last Done Comments DTaP,Tdap,and Td Vaccines (1 - Tdap) 2011 Hepatitis B Vaccines (1 of 3 - 19+ 3-dose series) 2011 HPV Vaccines (1 - 3-dose SCD M series) 2019 Depression Screening 08/08/2024 COVID-19 Vaccine (1 - 2024-2 6 season) 2025 Influenza Vaccine (#1) 2025 RSV Immunization Adult Patie nts (1 - 1-dose 75+ series) 2067 HIB Vaccines Aged Out No longer eligi ble based on patient's age to complete this topic Hepatitis A Vaccines Aged Out No long er eligible based on patient's age to complete this topic IPV Vaccines Aged Out No longer eligi ble based on patient's age to complete this topic MMR Vaccines Aged Out No longer eligi ble based on patient's age to complete this topic Meningococcal ACWY Vaccine Aged Out N o longer eligible based on patient's age to complete this topic Meningococcal B Vaccine Aged Out No l onger eligible based on patient's age to complete this topic Pneumococcal Vaccine: Pediat rics (0 to 5 Years) and At-Risk Patients (6 to 49 Years) Aged Out No longer eligible b ased on patient's age to complete this topic RSV Immunization Patients Un floyd 20 months Aged Out No longer eligible b ased on patient's age to complete this topic Varicella Vaccines Aged Out No longer eligible based on patient's age to complete this topic
--- OUTSIDE RECORDS SUMMARY | 2025-06-20 10:28 | XMS_ITS | Clinical Summary ---
Author Organization Loc[facility] Address [address] [place] [phone] Phone Care Team Providers Care Club Attendant Name Role Phone Pcp, Unknown Primary Care Provider Unavailabl e Allergies No known active allergies Medications LORAZEPAM ORAL Take by mouth daily as needed. Active Social History Tobacco Use Types Packs/Day Years Used Date Smoking Tobacco: Never Assessed Education Answer Date Recorded Are you interested in more education? Not on mariel e 03/18/2025 Are you concerned about learning? Not on file 03/18/2025 No 03/18/2025 No 03/18/2025 Digital Access Answer Date Recorded No 03/18/2025 No 03/18/2025 Reliable internet access at home? Not on file 03/18/2025 Device with a working camera? Not on file Sex and Gender Information Value Date Recorded Sex Assigned at Not on file Legal Sex Male 8:59 PM EDT Gender Identity Not on file Sexual Orientation Not on file Last Filed Vital Signs Vital Sign Reading Time Taken Comments Blood Pressure 114/72 03/18/2025 11:13 AM EDT Pulse 46 03/18/2025 11:13 AM EDT Temperature 36.7 C (98.1 F) 03/18/2025 11:13 AM EDT Respiratory Rate - - Oxygen Saturation 100% 03/18/2025 11:13 AM EDT Inhaled Oxygen Concentration - - Weight - - Height - - Body Mass Index - - Plan of Treatment Health Maintenance Due Date Last Done Comments DEPRESSION SCREENING 2004 SMOKING Hx and SMOKELESS TOB ACCO SCREENING 2005 HEPATITIS C SCREENING 2010 HIV ONE-TIME SCREENING (18-6 5 YEARS) 2010 Adult Td,Tdap Booster 08/16/2017 08/16/2007 INFLUENZA VACCINE (#1) 2025 COVID-19 VACCINE (2024-2 6 season) 2025 HEPATITIS A VACCINES Aged Out No long er eligible based on patient's age to complete this topic HIB VACCINES Aged Out No longer eligi ble based on patient's age to complete this topic IPV VACCINES Aged Out No longer eligi ble based on patient's age to complete this topic MENINGOCOCCAL VACCINES (ACWY) Aged Out No longer eligible based on patient's age to complete this topic MENINGOCOCCAL VACCINES (B) Aged Out N o longer eligible based on patient's age to complete this topic PNEUMOCOCCAL VACCINES (0-49 years) Aged Out No longer eligible based on patient's age to complete this topic Medical Devices Not on file Insurance O [place] [address] [place], [place] [address]O [facility] HMO Care Teams Club Attendant Relationship Specialty Start Date End Date Pcp, Unknown PCP - General 03/18/25 Additional Source Comments The information contained in this document represents components of the legal health record. It is not the complete legal health record.Located [facility]
[2025-06-20 11:04] LABS: Alanine Aminotransferase 44 U/L (0-40); Albumin Level 5.0 g/dL (3.5-5.0); Alkaline Phosphatase 64 U/L (39-117); Anion Gap 14 (12-20); Aspartate Amino Transferase 35 U/L (5-37); Blood Urea Nitrogen 12 mg/dL (9-16); Calcium 9.6 mg/dL (8.4-10.2); Carbon Dioxide 22 mmol/L (22-29); Chloride 109 mmol/L (96-108); Cholesterol 206 mg/dL (<200); Estimated Glomerular Filt Rate > 60; HDL Cholesterol 48 mg/dL (>40); Potassium 4.1 mmol/L (3.3-5.1); Sodium 141 mmol/L (135-145); Total Protein 7.4 g/dL (6.5-8.0); Triglycerides 110 mg/dL (<150)
[2025-06-20 11:09] LABS: Appearance Urine Clear; Glucose Urine UA Negative (Negative); PH 6.5 (5.0-9.0); Specific Gravity - Urine 1.020 (1.005-1.025)
== END 2025-06-20 09:13 | disposition home or self-care (01) ==
LOC: HO.LAB 09:12
DX: Z00.00 Encounter for general adult medical examination without abnormal findings (principal); F32.9 Major depressive disorder, single episode, unspecified; Z13.21 Encounter for screening for nutritional disorder; Z13.6 Encounter for screening for cardiovascular disorders
CPT/HCPCS: 36415; 80053; 80061; 81003; 82306; 84443; 85025